=== PATIENT | male | born 1995 | race Caucasian/White ===

== ENCOUNTER → 2016-06-20 | Emergency (ER) | payer OTHER ==
[2016-06-20 09:12] VITALS: BP 145/115; PULSE 85; RESP 18; TEMP 98; O2SAT 97
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
== END | disposition home or self-care (01) ==
LOC: CED 08:58
PROC: 0H9LXZZ Drainage of Left Lower Leg Skin, External Approach (ICD-10-PCS; principal; 2016-06-20)
DX: T25.412A Corrosion of unspecified degree of left ankle, initial encounter (principal); Y92.531 Health care provider office as the place of occurrence of the external cause
CPT/HCPCS: G0463-PO

== ENCOUNTER 2016-11-02 17:17 | Emergency (ER) | payer OTHER ==
[2016-11-02 17:32] VITALS: BP 169/109; RESP 18; O2SAT 97
[2016-11-02] MEDS ORDERED: CARBAMIDE PEROXIDE 15 ML BOTTLE RTEAR ONE (17:42)
[2016-11-02] MEDS ORDERED: HYDROGEN PEROXIDE 236 ML BOTTLE TP ONE (18:00)
--- NOTE | 2016-11-02 18:50 | EDPHY ---
H & P Time Seen by Provider: 11/02/16 17:40 HPI/ROS: This patient complains of a feeling of his ears being blocked by cerumen in the right more than left. Symptoms started 4-5 days ago in worsened over the past few hours today. He has minimal discomfort in the right ear but no pain in the left ear. Mostly nose is diminished hearing due to the symptoms. He notes no exacerbating or alleviating factors. ROS: No fevers or chills no other constitutional symptoms No drainage from his ears no other HEENT complaints. 5 point ROS is otherwise negative. Past Medical/Surgical History: Psychiatric Smoking Status: Former smoker Physical Exam: Physical Exam Vital signs are normal. General: No acute distress HEENT: Ears: Bilateral cerumen impaction the right is complete in the left is 90%. After cerumen is removed External canals and tympanic membranes are clear with no erythema or abnormal findings bilaterally. Oropharynx: No erythema or exudates. No dysphonia. No drooling or stridor. Eyes: Pupils equal and react to light. Extraocular motions are intact. Cardiac: Brisk capillary refill intact throughout Skin: No rash or pallor. Neuro: Alert with no focal deficits noted. Constitutional: Initial Vital Signs Temperature (C) 36.6 C 11/02/16 17:31 Heart Rate 101 H 11/02/16 17:31 Respiratory Rate 18 11/02/16 17:31 Blood Pressure 169/109 H 11/02/16 17:31 O2 Sat (%) 97 11/02/16 17:31 O2 Delivery Mode Room Air Allergies/Adverse Reactions: No Known Allergies Allergy (Unverified 11/02/16 17:30) Home Medications: Medication Instructions Recorded Amber 06/20/16 Viibryd 06/20/16 MDM/Departure - MDM Medications Given: Discontinued Medications Carbamide Peroxide (Debrox) 5 drop RTEAR EDNOW ONE Stop: 11/02/16 17:43 Last Admin: 11/02/16 17:46 Dose: 5 drops ED Course/Re-evaluation: Debrox solution to bilateral ears followed by irrigation by our nurse and tech with release of cerumen. Patient tolerated this well and felt resolution of his diminished hearing after the cerumen was removed - Depart Disposition: Home, Routine, Self-Care Clinical Impression: Impacted cerumen of both ears Condition: Good Instructions: Cerumen Impaction (ED) Additional Instructions: Diagnosis: Bilateral cerumen impaction-resolved Plan: Return if he develops significant ear pain, discharge or other concerns. To not use Q-tips ears, simply clean with her small finger after showering. Referrals: Guillermo Doyle MD [Primary Care Provider] - As per Instructions
[2016-11-02 19:01] VITALS: PULSE 98; TEMP 98.6
== END 2016-11-02 18:55 | disposition home or self-care (01) ==
LOC: CED 17:17
PROC: 3E1B78Z Irrigation of Ear using Irrigating Substance, Via Natural or Artificial Opening (ICD-10-PCS; principal; 2016-11-02)
DX: H61.23 Impacted cerumen, bilateral (principal); Z87.891 Personal history of nicotine dependence